=== PATIENT | female | born 1960 | race Caucasian/White ===

== ENCOUNTER → 2019-07-04 | Outpatient (CLI) | payer BC ==
[~2019-07-04] VITALS: Ht 160 cm; Wt 64.0 kg
[~2019-07-04] MED LIST: BACLOFEN 10MG T10 MG PO; BUPROPION XL300 MG PO; FLEXERIL PO; LORCET 5-325 M1 EACH PO; MELOXICAM15 MG PO; NEXIUM20 M1 PO; PROGESTERONE200 MG PO; SEROQUEL 25 MG25 MG PO; TOPAMAX 25 MG T25 M1 PO; VITAMIN D35000 UNI2 PO
[2019-07-04 10:56] VITALS: BP 136/88
--- NOTE | 2019-07-04 11:21 | NUR ---
Pain Clinic Assessment: 1. History of Osteoarthritis: BACK NECK History of Rheumatoid Arthritis: Not Applicable 2. Height: 5 ft. 3 in. 160.0 cm. Weight: 141.0 lb. oz. 63.957 kg. Patient's BMI: 25.0 3. Vital Signs: BP: 136/88 Pulse: 76 Resp: 16 Temp: 02 Sat: 100 ECG Mon: 4. Pain Intensity: 8 5. Fall Risk: Dizziness: Y Needs help standing or walking: N Fallen in the last 3 months: N Fall risk comments: 6. Patient on Blood Thinner: None 7. History of Hypertension: N 8. Opioid Therapy greater than 6 weeks: N Opiate Contract Signed: 9. Risk Assessment Tool Provided: LOW RISK 2/3 10. Functional Assessment Tool: 65/70 11. Recreational Drug Use: Past greater than 3 mos Drug Type: Tobacco Use: Never Smoker Tobacco Type: Amount or Packs/day: How Many Years: Alcohol Use: Yes Frequency: Daily Quant: 1
--- NOTE | 2019-07-05 12:44 | HPC ---
[facility] [address] [address] PAIN MANAGEMENT CONSULTATION Name: MACRINA DASILVA Room #: REG JEREMIAH ToscanoYvette#: [id number] Admission: 07/04/19 Attend Phys: Jonathan Tang DO Discharge: Date of : 62 Report #: [id number] THIS REPORT FOR: cc: GEORGE MYLES Physician not on staff Jonathan Tang DO ~ DATE OF SERVICE: 07/04/2019 REFERRING PHYSICIAN: George Myles DO CHIEF COMPLAINT: Neck pain, left upper extremity pain with paresthesias. HISTORY OF PRESENT ILLNESS: As you know, the patient is a 59-year-old female who has had longstanding history of neck pain, left upper extremity pain with paresthesias. The patient was seen by my partner, Dr. Tushar Tang for years, where she was undergoing treatment for lumbar radicular symptoms and cervical radicular symptoms. The patient was last seen by Dr. Tushar Tang per the request of the [facility] team on 09/29/2016 where she underwent a cervical epidural injection under fluoroscopic guidance. She was then lost to followup visit since that time. The patient contacted our clinic to be further evaluated as about a month ago, her pain became "intolerable." She denies specific injury or trauma that may have led to symptom development. She has trialed [id number] medication without efficacy. Apparently, the patient did follow up with her neurologist that we do not have any information that would indicate that meeting nor the presumptive diagnoses. She has made an appointment back with our clinic today to discuss options for treatment. The patient indicates today her pain is continuous, steady and constant. She describes the pain as burning, shooting, sharp and stabbing, places current pain score at 8/10, daily average at 9/10, worst pain has been at 10/10. The patient states her pain is exacerbated with "getting stressed" looking up and using her arms. She states pain improves with the use of Biofreeze, hot water and warm compress application lying down and massages. She has referred herself to our clinic here at [facility] after being lost to follow up at Dr. Tushar Tang's [facility]. She is new to our services. PAST MEDICAL HISTORY: 1. Chronic stomach problems. 2. Chronic neck pain. 3. Chronic low back pain. 4. Depression. 5. Gastroesophageal reflux disease. 6. Cervical cancer. [address] [address] PAIN MANAGEMENT CONSULTATION Name: MACRINA DASILVA Room #: REG CLI David#: [id number] Admission: 07/04/19 Attend Phys: Jonathan Tang DO Discharge: Date of : 62 Report #: [id number] PAST SURGICAL HISTORY: 1. Right ankle open reduction and internal fixation. 2. Cholecystectomy. SOCIAL HISTORY: The patient denies current tobacco use. Denies IV or illicit drug use. Admits to approximately 5 alcohol beverages per week. 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 She is not receiving workmen's compensation nor she is trying to obtain disability benefits. She is not in litigation in regards to pain. She is not accompanied at today's visit. REVIEW OF SYSTEMS: Positive for decrease in appetite, fever, night sweats, fatigue and weakness, headaches with photosensitivity, chronic sinus problems with rhinitis, sore throat and voice changes, loss of appetite, changes in bowel movements, nausea, vomiting, frequent diarrhea, frequent urination, nocturia, lightheadedness and dizziness, numbness and tingling sensations, memory loss, confusion, depression, insomnia, glandular and hormonal problems, heat and cold intolerance. All other review of systems negative per 12-point review of systems other than those listed in history of present illness. Pain impact score 65/70 indicating near complete interference of daily activities secondary to pain. ALLERGIES: No known drug allergies. CURRENT MEDICATIONS: Hydrocodone/acetaminophen 5/325 t.i.d. p.r.n., progesterone 200 mg once a day, cyclobenzaprine 10 mg t.i.d., baclofen 10 mg once a day, cholecalciferol 5000 units per day, bupropion XL 300 mg once a day, omeprazole 20 mg per day, topiramate 25 mg per day, quetiapine 25 mg per day, meloxicam 15 mg per day. IMAGING: No imaging available. PHYSICAL EXAMINATION: VITAL SIGNS: Blood pressure 136/82, pulse 76, respiratory rate 16 and unlabored. The patient is 100% on room air. Height 5 feet 3 inches tall, weight 141 pounds, BMI calculated 25.0. GENERAL: Well-developed, well-nourished, well-hydrated 59-year-old female, appears her stated age. She is in mild distress secondary to pain, placing current pain score at 8/10. HEENT: Normocephalic, atraumatic. Pupils are round and equal. There is no scleral icterus. Extraocular muscles are intact. LUNGS: Clear, no wheeze, rhonchi or rales. CARDIOVASCULAR: Regular. No appreciable gallop, no rub. ABDOMEN: Soft, nontender, nondistended, normoactive bowel sounds. EXTREMITIES: Show no clubbing, no cyanosis, no edema. [facility] [place] [address] PAIN MANAGEMENT CONSULTATION Name: MACRINA DASILVA Room #: REG JEREMIAH David#: [id number] Admission: 07/04/19 Attend Phys: Jonathan Tang DO Discharge: Date of : 62 Report #: [id number] MUSCULOSKELETAL: Upper extremity strength appears symmetrical 5/5. Slight giveaway strength noted with biceps flexion and triceps extension on the left when compared to the right. Deep tendon reflexes are equal and symmetrical at biceps, brachioradialis and triceps. Spurling's test is positive left, negative right. Cervical provocation causes intensification of pain on the left with rotation and lateral flexion. Extension is mildly restricted though pain is not exacerbated. Forward flexion appears normal. Muscle bulk and tone equal and symmetrical in upper extremities. ASSESSMENT: 1. Cervical radiculopathy. 2. Cervical spondylosis with radiculopathy. 3. Chronic neck pain. 4. Migraine headaches. 5. Chronic intractable pain. PLAN: 1. Based on today's physical exam and history the patient has provided, the description the patient uses in regards to pain as well as location of symptoms, likely source of the patient's pain is a cervical radiculopathy. The patient and I discussed that imaging from 2017 that she is providing via recollection will not be extremely beneficial in being able to help determine the course of treatment options. Further imaging will likely be necessary. We would recommend at least an x-ray imaging of the cervical spine, so that we can determine the extent of the bony changes, which may be able to help us correlate symptoms more definitively. It would appear that the patient is suffering from changes at the C5-C6 and C6 level based on distribution of her symptoms, though I believe that there is a strong possibility of either central canal or neural foraminal stenosis underlying. We would recommend that she start out with x-ray imaging initially. Once this has been obtained, we will review those findings. We also discussed the following for treatment options in generality and how you handle cervical radiculopathy. 2. We discussed physical therapy, stretching exercises and traction techniques as a treatment option. We discussed medication management having the patient trial neuropathic medications such as nortriptyline, amitriptyline, Cymbalta, Lyrica or gabapentin. This would have to be in conjunction with her neurologist and her primary care physician. We discussed cervical epidural injections for which the patient referred herself to our clinic and ultimately surgical decompression. After reviewing the risks and benefits of all proposed treatment options, the patient wished to move forward with a cervical epidural injection. 3. The patient was advised that due to third constitution party payer restrictions, authorization would have to be obtained before the patient could undergo a cervical epidural injection. Authorization could take anywhere from 4-7 working days. We will begin this process immediately. Once this has been achieved, we will have the patient return to undergo cervical epidural injection. The patient was advised that over the 24 hours following the injection, we recommend [address] [address] PAIN MANAGEMENT CONSULTATION Name: JENHANS MEHDIMACRINA Room #: REG JEREMIAH Hernandez#: [id number] Admission: 07/04/19 Attend Phys: Jonathan Tang DO Discharge: Date of : 62 Report #: [id number] that she remain relatively sedentary and that she does not participate in normal daily activities. This will allow the injection to provide better analgesic benefit. 4. We will send the patient for x-ray imaging of the cervical spine and wished to have this evaluated before we look towards placing injections into the cervical area. I believe based on her examination that her C5-C6 and C6 level are the source of the symptoms, though there could be a potential for a higher level with severe central canal stenosis. The x-ray imaging hopefully will be returned today. We will review those findings once they are available. 5. We made no changes in the patient's medication management at this time. We will make suggestions to the primary team if adjustments need to be made with the therapy such as antineuropathic medications or even anti-inflammatories. No changes were made today. 6. We will see the patient back in followup visit once we have completed the authorization process. We are hopeful will have this done quickly, so the patient could return to undergo a cervical epidural injection assuming no contraindications on x-ray imaging. 7. We wish to thank the referring physician, Dr. Myles for the opportunity to see this patient in consultation. We will keep you apprised of her response to treatment as we address what appears to be cervical radiculopathy. Again, we wish to thank you for the opportunity to see this patient in consultation. <ELECTRONICALLY SIGNED> By: Jonathan Tang DO 07/05/19 1244 [id number] Jonathan Tang DO /nt
== END ==
LOC: RAD 06:48 → PAIN 06:48
DX: M48.02 Spinal stenosis, cervical region (principal); M47.22 Other spondylosis with radiculopathy, cervical region; M12.88 Other specific arthropathies, not elsewhere classified, other specified site; K21.9 Gastro-esophageal reflux disease without esophagitis; G43.909 Migraine, unspecified, not intractable, without status migrainosus; G89.29 Other chronic pain; Z90.49 Acquired absence of other specified parts of digestive tract

== ENCOUNTER → 2019-07-12 | Outpatient (CLI) | payer BC ==
[~2019-07-12] VITALS: Ht 160 cm; Wt 67.7 kg
[2019-07-12 14:57] VITALS: BP 130/81
--- NOTE | 2019-07-12 15:03 | NUR ---
Pain Clinic Assessment: 1. History of Osteoarthritis: BACK NECK History of Rheumatoid Arthritis: Not Applicable 2. Height: 5 ft. 3 in. 160.0 cm. Weight: 149.2 lb. oz. 67.677 kg. Patient's BMI: 26.4 3. Vital Signs: BP: 130/81 Pulse: 82 Resp: 14 Temp: 02 Sat: 99 ECG Mon: 4. Pain Intensity: 9 5. Fall Risk: Dizziness: N Needs help standing or walking: N Fallen in the last 3 months: N Fall risk comments: 6. Patient on Blood Thinner: None 7. History of Hypertension: N 8. Opioid Therapy greater than 6 weeks: N Opiate Contract Signed: 9. Risk Assessment Tool Provided: LOW RISK 2/3 10. Functional Assessment Tool: 65/70 11. Recreational Drug Use: Past greater than 3 mos Drug Type: Tobacco Use: Never Smoker Tobacco Type: Amount or Packs/day: How Many Years: Alcohol Use: Yes Frequency: Quant:
--- NOTE | 2019-07-18 09:15 | P ---
[facility] [place] [address] PROCEDURE REPORT Name: MACRINA DASILVA Room #: REG [facility] David#: [id number] Admission: 07/12/19 Attend Phys: Jonathan Tang DO Discharge: Date of : 62 Report #: [id number] THIS REPORT FOR: cc: FAIZA MYLES not on staff Jonathan Tang DO ~ DATE OF SERVICE: 07/12/2019 DESCRIPTION OF PROCEDURE: C7-T1 cervical epidural steroid injection under fluoroscopic guidance. This is the first procedure of the first series that the patient is undergoing. After obtaining written consent, the patient was taken back to the fluoroscopy suite and placed in a prone position with separate pillows under the chest and forehead to decrease cervical lordosis. The skin overlying the cervical area was prepped and draped in an aseptic fashion. The C7-T1 vertebral interspace was identified by AP fluoroscopy. The skin and subcutaneous tissue overlying the target site of injection was anesthetized using 3 mL of 1% lidocaine. A 20-gauge 3.5-inch Tuohy needle was advanced under fluoroscopic guidance toward the epidural space using a left parasagittal approach. The epidural space was identified using a loss of resistance to air technique. After negative aspiration for heme or cerebrospinal fluid, a total of 1 mL of Omnipaque was injected. A cervical epidurogram was confirmed using AP and oblique fluoroscopy. After negative aspiration for heme or cerebrospinal fluid, A 5 mL of a solution containing 2 mL 40 mg per mL, 80 mg total triamcinolone along with 3 mL of lidocaine 1% was injected in increments. Contrast spread was noted from posterior epidural space. The needle was then retracted approximately group home and the needle track was flushed with 1 mL of 1% lidocaine. There were no apparent new sensory deficits in the upper extremities present following the procedure. A sterile bandage was placed over the injection site. The heart rate, pulse oximetry and blood pressure were continuously monitored after the procedure. There were no complications. The patient tolerated the procedure well and was carefully escorted in the recovery room in stable condition. After meeting discharge criteria, the patient was discharged home. <ELECTRONICALLY SIGNED> By: Jonathan Tang DO 07/18/19 0915 1606 03 Jonathan Tang DO /nt
--- NOTE | 2019-07-18 09:15 | HPC ---
[facility] [place] [address] PAIN MANAGEMENT CONSULTATION Name: MACRINA DASILVA Room #: REG JEREMIAH Toscano.#: [id number] Admission: 07/12/19 Attend Phys: Jonathan Tang DO Discharge: Date of : 62 Report #: [id number] THIS REPORT FOR: cc: FAIZA MYLES Physician not on staff Jonathan Tang DO ~ CC: Saurabh MYLES Physician staff DATE OF SERVICE: 07/12/2019 REFERRING PHYSICIAN: Saurabh Carl III, MD CHIEF COMPLAINT: Neck pain, left upper extremity pain with paresthesias. HISTORY OF PRESENT ILLNESS: As you know, the patient is a 59-year-old female with longstanding history of chronic neck pain, left upper extremity pain with paresthesias. She also has chronic low back pain and left lower extremity pain with paresthesias. She was seen in consultation per the request of Dr. Carl to address cervical radiculopathy. The patient has been seen by Dr. Tushar Tang my partner at his [facility] office in the past where the patient was seen for cervical radiculopathy. The patient was referred to our clinic on 07/04/2019 to address cervical radiculopathy. She was seen in consultation for the diagnosis of cervical radiculopathy and cervical spondylosis with radiculopathy and established today's appointment to undergo a cervical epidural injection as authorization had to be obtained. She returns today in followup visit to undergo first in a series of cervical epidural injections under fluoroscopic guidance. She is placing her current pain score at 9/10. ALLERGIES: No known drug allergies. CURRENT MEDICATIONS: Hydrocodone/acetaminophen, cyclobenzaprine, progesterone, baclofen, cholecalciferol, bupropion XL, omeprazole, topiramate, quetiapine, and meloxicam. SOCIAL HISTORY: The patient denies current tobacco use. Denies IV or illicit drug use. She admits to 5 alcoholic beverages per week. She reports she is self-employed in [place], but has not been working over the past couple of weeks due to pain. She is unaccompanied today. IMAGING: No new imaging available. [address] [address] PAIN MANAGEMENT CONSULTATION Name: MACRINA DASILVA Room #: [facility] [id number] Admission: 07/12/19 Attend Phys: Jonathan Tang DO Discharge: Date of : 62 Report #: [id number] PHYSICAL EXAMINATION: VITAL SIGNS: Blood pressure 130/81, pulse 82, respiratory rate 14 and unlabored. The patient is 99% on room air. Height 5 feet 3 inches tall, weight 149.2 pounds, BMI calculated 26.4. GENERAL: Well-developed, well-nourished, well-hydrated 59-year-old female, appearing stated age, pain is rated today at 9/10. HEENT: Normocephalic and atraumatic. Pupils are equal, round, and reactive to light. EXTREMITIES: Show no clubbing, no cyanosis, and no edema. MUSCULOSKELETAL: Upper extremity strength appears symmetrical 5/5. There is slight giveaway strength noted with biceps flexion and triceps flexion again on the left when compared to the right. Spurling's test positive left. Cervical provocation testing is met with increased pain with leftward rotation and lateral flexion. There is some palpatory tenderness over the paraspinal musculature of the lower lumbar spine. No spinous process tenderness. The patient indicates negative seated straight leg raising, but a positive supine straight leg raising on the left. ASSESSMENT: 1. Cervical radiculopathy. 2. Cervical spondylosis with radiculopathy. 3. Chronic neck pain. 4. Chronic low back pain. 5. Lumbar radiculopathy. 6. Lumbosacral spondylosis with radiculopathy. 7. Chronic intractable pain. PLAN: 1. The patient returns today in followup visit to address cervical radiculopathy involving the neck and left upper extremity. The patient has been advised risks and benefits of a cervical epidural injection. These risks include but are not necessarily limited to bleeding, bruising, infection, worsening pain, no relief of pain, also risk of temporary or permanent muscle weakness, temporary or permanent nerve damage, possible paralysis and . The patient states understood and wished to proceed. 2. No medication changes made at today's visit. The patient will continue current medical therapy as previously prescribed. 3. The patient and I did discuss the possibility of addressing her lumbar radicular symptoms involving the low back and left lower extremity as a treatment option in the future. At present, we wish to concentrate on the patient's cervical radiculopathy for which she was referred to our clinic. Once her symptoms have resolved or improved to a tolerable level, then we would begin addressing her lumbar radicular symptoms involving the low back and left lower extremity. The patient is agreeable to plan. 4. We will see the patient back in followup visit in approximately 30 days. At that time, review the efficacy of today's cervical epidural injection and [address] [address] PAIN MANAGEMENT CONSULTATION Name: MACRINA DASILVA Room #: REG JEREMIAH ToscanoYvette#: [id number] Admission: 07/12/19 Attend Phys: Jonathan Tang DO Discharge: Date of : 62 Report #: [id number] determine next in the series of cervical epidural injections might be necessary or we may move on to addressing lumbar radiculopathy. <ELECTRONICALLY SIGNED> By: Jonathan Tang DO 07/18/19 0915 1606 51 Jonathan Tang DO /nt
== END | disposition home or self-care (01) ==
LOC: PAIN 06:57
DX: M47.22 Other spondylosis with radiculopathy, cervical region (principal); M54.2 Cervicalgia; M47.26 Other spondylosis with radiculopathy, lumbar region; M54.5 Low back pain; G89.29 Other chronic pain; Z79.891 Long term (current) use of opiate analgesic; Z98.890 Other specified postprocedural states; Z79.899 Other long term (current) drug therapy

== ENCOUNTER → 2019-08-23 | Outpatient (CLI) | payer BC ==
[~2019-08-23] VITALS: Ht 160 cm; Wt 66.6 kg
--- NOTE | ~2019-08-23 | HPC ---
[facility] [address] [place] [address] PAIN MANAGEMENT CONSULTATION Name: MACRINA DASILVA Room #: REG JEREMIAH ToscanoYvette#: [id number] Admission: 08/23/19 Attend Phys: Jonathan Tang DO Discharge: Date of : 62 Report #: [id number] THIS REPORT FOR: cc: FAIZA MYLES - No family physician/PCP Jonathan Tang DO ~ CC: JESSEE physician/PCP Jonathan Myles DATE OF SERVICE: 08/23/2019 CHIEF COMPLAINT: Neck pain, left upper extremity pain with paresthesias. HISTORY OF PRESENT ILLNESS: As you know, the patient is a 59-year-old female with longstanding history of chronic neck pain, left upper extremity pain with paresthesias. She also complains of chronic low back pain, left lower extremity pain with paresthesias. We have seen the patient in consultation for cervical radiculopathy and she has undergone 1 cervical epidural injection under fluoroscopic guidance for which the patient reports a 54% improvement in overall pain. Unfortunately, her symptoms began to return. She is now placing in pain score at 10/10. She returns today for the second in the series of cervical epidural injections in hopes of improving pain. She denies new injury or trauma that may have led to symptom reoccurrence. She has had no changes in her medical history since our last visit. ALLERGIES: No known drug allergies. CURRENT MEDICATIONS: See chart. SOCIAL HISTORY: The patient denies current tobacco use. Denies IV or illicit drug use. Admits to 5 alcohol beverages per week. 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 She is unaccompanied today. IMAGING: No new imaging available. PHYSICAL EXAMINATION: VITAL SIGNS: Blood pressure 141/96, pulse 77, respiratory rate 14 and unlabored. The patient is 100% on room air. Height 5 feet 3 inches tall, weight 146.8 pounds and BMI calculated 26.0. GENERAL: Well-developed, well-nourished, well-hydrated 59-year-old female, appears stated age, pain is rated today 10/10. HEENT: Normocephalic, atraumatic. Pupils equal, round, reactive to light. Speech fluent. [facility] [address] [place] [address] PAIN MANAGEMENT CONSULTATION Name: MACRINA DASILVA Room #: REG [facility].#: [id number] Admission: 08/23/19 Attend Phys: Jonathan Tang DO Discharge: Date of : 62 Report #: [id number] EXTREMITIES: Show no clubbing, no cyanosis, no edema. MUSCULOSKELETAL: Upper extremity strength is symmetrical 5/5. Spurling's test positive left, negative right. Cervical provocation testing is met with increasing pain mainly with leftward rotation and lateral flexion to the left. Palpatory tenderness noted over the paraspinal musculature of cervical spine. ASSESSMENT: 1. Cervical radiculopathy. 2. Cervical spondylosis with radiculopathy. 3. Chronic neck pain. 4. History of chronic low back pain. 5. History of lumbar radiculopathy. 6. Lumbosacral spondylosis with radiculopathy. 7. Chronic intractable pain. PLAN: 1. The patient returns today in followup visit requesting to undergo the second in the series of cervical epidural injections in hopes of improving pain. She reports a 54% improvement in overall symptoms with the previous cervical epidural injection, but unfortunately, her symptoms have recurred. She is now placing pain score 10/10. She returns today to undergo next in the series of cervical epidural injections. The patient has been advised risks and benefits of a cervical epidural injection. These risks include but are not necessarily limited to bleeding, bruising, infection, worsening pain, no relief of pain, also risk of temporary or permanent muscle weakness, temporary or permanent nerve damage, possible paralysis, post-dural puncture headache and . The patient states understood and wished to proceed. The patient has been advised of the risks that she may encounter with COVID-19 virus and steroid exposure. These risks are reduction in an immune response and thus leading to more potential risk of ramya COVID-19 and worsening of symptoms if she has current COVID-19 symptoms. She states she understands the risks due to the COVID-19 and wishes to continue. 2. No medication changes made at today's visit. The patient will continue current medical therapy as previously prescribed. 3. We will see the patient back in followup visit for the third in the series of cervical epidural injections assuming good efficacy with today's procedure. PROCEDURE NOTE DESCRIPTION OF PROCEDURE: C7-T1 cervical epidural steroid injection under fluoroscopic guidance. This is the second procedure of the first series that the patient is undergoing. [address] [address] PAIN MANAGEMENT CONSULTATION Name: MACRINA DASILVA Room #: RANDALL Hernandez#: [id number] Admission: 08/23/19 Attend Phys: Jonathan Tang, Discharge: Date of : 62 Report #: [id number] After obtaining written consent, the patient was taken back to the fluoroscopy suite and placed in a prone position with separate pillows under chest and forehead to decrease cervical lordosis. The skin overlying the cervical area was prepped and draped in an aseptic fashion. The C7-T1 vertebral interspace was identified by AP fluoroscopy. The skin and subcutaneous tissue overlying the target site of injection was anesthetized using 3 mL of 1% lidocaine. A 20-gauge Tuohy needle was advanced under fluoroscopic guidance toward the epidural space using a midline approach. The epidural space was identified using a loss of resistance to air technique. After negative aspiration for heme or cerebrospinal fluid, a total of 1 mL of Omnipaque was injected. A cervical epidurogram was confirmed using AP and oblique fluoroscopy. After negative aspiration for heme or cerebrospinal fluid, 5 mL of a solution containing 2 mL 40 mg per mL, 80 mg total triamcinolone along with 3 mL of lidocaine 1% was injected in increments. Contrast spread was noted from posterior epidural space. The needle was then retracted approximately chcf and the needle track was flushed with 1 mL of 1% lidocaine. There were no apparent new sensory deficits in the upper extremities present following the procedure. A sterile bandage was placed over the injection site. The heart rate, pulse oximetry and blood pressure were continuously monitored after the procedure. There were no apparent complications. The patient tolerated the procedure well and was carefully escorted in the recovery room in stable condition. After meeting discharge criteria, the patient was discharged home. By: [id number] Jonathan Tang, DO /nt
[2019-08-23 13:50] VITALS: BP 141/96
--- NOTE | 2019-08-23 14:06 | NUR ---
Pain Clinic Assessment: 1. History of Osteoarthritis: BACK NECK History of Rheumatoid Arthritis: Not Applicable 2. Height: 5 ft. 3 in. 160.0 cm. Weight: 146.8 lb. oz. 66.588 kg. Patient's BMI: 26.0 3. Vital Signs: BP: 141/96 Pulse: 77 Resp: 14 Temp: 02 Sat: 100 ECG Mon: 4. Pain Intensity: 10 5. Fall Risk: Dizziness: N Needs help standing or walking: N Fallen in the last 3 months: N Fall risk comments: 6. Patient on Blood Thinner: None 7. History of Hypertension: N 8. Opioid Therapy greater than 6 weeks: N Opiate Contract Signed: 9. Risk Assessment Tool Provided: LOW RISK 2/3 10. Functional Assessment Tool: 65/70 11. Recreational Drug Use: Past greater than 3 mos Drug Type: Tobacco Use: Former Smoker Tobacco Type: Cigarettes Amount or Packs/day: How Many Years: 5 Alcohol Use: Yes Frequency: Daily Quant: LIQUOR
== END | disposition home or self-care (01) ==
LOC: PAIN 06:49
DX: M47.22 Other spondylosis with radiculopathy, cervical region (principal); G89.29 Other chronic pain; M47.27 Other spondylosis with radiculopathy, lumbosacral region; Z98.890 Other specified postprocedural states; Z79.899 Other long term (current) drug therapy; Z87.891 Personal history of nicotine dependence

== ENCOUNTER 2019-11-29 11:13 | Emergency (ER) | payer BC ==
[~2019-11-29] VITALS: Ht 160 cm; Wt 68.0 kg
[2019-11-29 11:22] VITALS: BP 152/107
== END 2019-11-29 12:07 | disposition home or self-care (01) ==
LOC: ER 11:13
DX: S80.12XA Contusion of left lower leg, initial encounter (principal); S80.11XA Contusion of right lower leg, initial encounter; S50.312A Abrasion of left elbow, initial encounter; S50.812A Abrasion of left forearm, initial encounter; Z79.899 Other long term (current) drug therapy; Z87.891 Personal history of nicotine dependence; V43.52XA Car driver injured in collision with other type car in traffic accident, initial encounter; Y93.89 Activity, other specified; Y92.410 Unspecified street and highway as the place of occurrence of the external cause; Y99.8 Other external cause status